=== PATIENT | female | born 1940 | race Caucasian/White ===

== ENCOUNTER → 2020-04-23 | Outpatient (CLI) | payer MEDICARE ==
--- NOTE | 2020-04-30 10:07 | REPMRS ---
Patient History The patient states she had a clinical breast exam in December 2019. Patient is postmenopausal and has history of other cancer at age 76. Family history of unknown cancer at age 56 in mother, pancreatic cancer at age 65 in father. Taking unspecified hormones for 20 years. Digital Woman Screen Mammo: April 23, 2020 - Exam #: [id number] Bilateral CC and MLO view(s) were taken. Technologist: Minerva Campbell, Technologist Prior study comparison: March 22, 2019, bilateral digital woman screen mammo, [facility]. September 09, 2018, right breast diagnostic unilateral mammo, performed [facility]. March 28, 2018, bilateral digital woman screen mammo, performed at [facility]. FINDINGS: There are scattered fibroglandular densities. The Volpara volumetric breast density category is:B. There has been no change in the appearance of the mammogram from the prior studies. There is a mild amount of scattered fibroglandular density which is fairly symmetric. There is no interval development of dominant mass, architectural distortion, or grouped microcalcification suggestive of malignancy. 3-D tomosynthesis shows no additional findings. Assessment: BI-RADS/ACR category 1 mammogram. Negative Mammogram. Recommendation Routine screening mammogram of both breasts in 1 year (for women over age 40). This patient's Lifetime Breast Cancer Risk is estimated at 0.7 %. This mammogram was interpreted with the aid of an FDA-approved computer-aided dectection system. Electronically Signed By: Rod Power MD 04/30/20 [id number]
== END ==
LOC: M WHC 11:30
PROVIDERS: ATTEND Registered Nurse
DX: Z12.31 Encounter for screening mammogram for malignant neoplasm of breast (principal)

== ENCOUNTER → 2021-04-23 | Outpatient (CLI) | payer MEDICARE ==
--- NOTE | 2021-04-23 10:00 | REP ---
INDICATION: Z12.31 SCREENING MAMMO. COMPARISON: Multiple but only the prior exam of 04/23/2020 is a DBT exam TECHNIQUE: Digital screening mammography was carried out bilaterally in the CC and MLO projections using both 2D and 3D modalities and compared to the prior exams. By history, the patient has no complaints of a palpable breast abnormality or other significant breast complaints. FINDINGS: The breasts are unchanged in size and shape. Once again, scattered dense heterogenous nodular fibroglandular elements are seen bilaterally to such a degree that the sensitivity of the mammogram in detecting cancer is decreased. Stable benign calcifications are seen bilaterally. In the retroareolar slightly upper outer quadrant of the left breast there is a tiny potential shannan density. No other suspicious features are seen in either breast. The Volpara volumetric breast density pattern is C IMPRESSION: BIRADS/ACR category 0 mammogram. Potential shannan density in the left breast as described above and for which diagnostic digital magnified spot compression views are recommended in the CC and MLO projections. The spot compression views should be obtained using DBT technique. This patient's Tyrer-Cuzick lifetime breast cancer risk assessment score is 0.6%. This mammogram was interpreted with the aid of an FDA-approved computer-aided detection system. The patient states she had a clinical breast exam in over a year. The patient letter being requested is M0. RECOMMENDATION: As above <Electronically signed by Salo Clark > 04/23/21 [id number]
--- NOTE | 2021-04-23 13:50 | DEXAMM ---
INDICATION: M85.80 [facility] DISRD OF BONE DENSITY AND STRUCTURE. COMPARISON: Prior partial data January 03, 2014.. TECHNIQUE: Bone density was measured using dual-energy x-ray absorptionmetry (DEXA). FINDINGS: AP SPINE L1-L4 BMD 1.043 g/cm2 Young Adult T-Score -1.2 Age Matched Z-Score 0.6. LT FEMUR, TOTAL BMD 0.773 g/cm2 Young Adult T-Score -1.9 Age Matched Z-Score 0.3. LT NECK BMD 0.665 g/cm2 Young Adult T-Score -2.7 Age Matched Z-Score -0.4. RT FEMUR, TOTAL BMD 0.721 g/cm2 Young Adult T-Score -2.3 Age Matched Z-Score -0.2. RT NECK BMD 0.611 g/cm2 Young Adult T-Score -3.1 Age Matched Z-Score -0.8. IMPRESSION: There is low bone density of the spine. There is osteoporosis of the left hip. There is osteoporosis of the right hip. The density of the left hip has decreased 12.0% since initial exam on January 03, 2014. FOLLOW-UP: Recommendation for the next bone density exam: 2 years. <Electronically signed by Rod Power > 04/23/21 [id number]
== END ==
LOC: M WHC 08:07
PROVIDERS: ATTEND Internal Medicine
DX: Z12.31 Encounter for screening mammogram for malignant neoplasm of breast (principal); M85.80 Other specified disorders of bone density and structure, unspecified site; R92.8 Other abnormal and inconclusive findings on diagnostic imaging of breast; Z78.0 Asymptomatic menopausal state

== ENCOUNTER → 2021-05-13 | Outpatient (CLI) | payer MEDICARE | LOC: M WHC 12:51 | PROVIDERS: ATTEND Internal Medicine | DX: R92.2 Inconclusive mammogram (principal); N63.25 Unspecified lump in the left breast, overlapping quadrants; M85.80 Other specified disorders of bone density and structure, unspecified site | CPT/HCPCS: 76642; 77065; G0279 ==

== ENCOUNTER → 2022-04-29 | Outpatient (CLI) | payer MEDICARE | LOC: M WHC 09:22 | PROVIDERS: ATTEND Internal Medicine | DX: Z12.31 Encounter for screening mammogram for malignant neoplasm of breast (principal); N63.11 Unspecified lump in the right breast, upper outer quadrant ==

== ENCOUNTER → 2022-05-25 | Outpatient (CLI) | payer MEDICARE | LOC: M WHC 08:24 | PROVIDERS: ATTEND Internal Medicine | DX: R92.8 Other abnormal and inconclusive findings on diagnostic imaging of breast (principal); N63.10 Unspecified lump in the right breast, unspecified quadrant; N60.12 Diffuse cystic mastopathy of left breast ==

== ENCOUNTER → 2022-06-09 | Outpatient (CLI) | payer MEDICARE ==
[~2022-06-09] MED LIST: **SFHN** LIDOCAINE 1% MDV 20ML VIAL ONE; **SFHN** SODIUM BICARBONATE 8.4% 50MEQ 50ML VIAL ONE; AMLO25TA PO; CITRTAB18 PO; CO Q200C10 PO; CVS1CAP2 PO; D 101000 PO; ESTR1TAB PO; PRIL20TA2 PO; VALS1TAB66 PO; VITA-298 PO
[2022-06-09 10:02] VITALS: BP 118/78
== END ==
LOC: M WHCPRO 08:23
PROVIDERS: ATTEND Internal Medicine
DX: C50.911 Malignant neoplasm of unspecified site of right female breast (principal)

== ENCOUNTER → 2022-06-16 | Outpatient (REF) | payer MEDICARE ==
[~2022-06-16] MED LIST changes: -**SFHN** LIDOCAINE 1% MDV 20ML VIAL ONE; -**SFHN** SODIUM BICARBONATE 8.4% 50MEQ 50ML VIAL ONE
[2022-06-16 12:36] LABS: INR 0.87; PROTHROMBIN TIME 12.2 SECONDS (12.7-14.5)
[2022-06-16 12:37] LABS: PARTIAL THROMBOPLASTIN TIME 27.5 SECONDS (25.9-37.0)
== END ==
LOC: M LAB REF 12:02
PROVIDERS: ATTEND Internal Medicine
DX: Z01.810 Encounter for preprocedural cardiovascular examination (principal); N63.31 Unspecified lump in axillary tail of the right breast

== ENCOUNTER → 2022-07-02 | Outpatient (CLI) | payer MEDICARE | LOC: M LABSMTC 11:04 | PROVIDERS: ATTEND Anesthesiology | DX: Z01.818 Encounter for other preprocedural examination (principal); Z11.52 Encounter for screening for COVID-19 ==

== ENCOUNTER 2022-07-07 06:31 | Day surgery (SDC) | payer MEDICARE ==
[~2022-07-07] VITALS: Ht 170.2 cm; Wt 70.9 kg
[~2022-07-07 06:31] MED LIST changes: +HEPARIN SOD (PORCINE) 5000UNITS/ML 1ML VIAL/SYRINGE SQ ONE; +ceFAZolin SOD 2 GM in IV 1 EA IV ONE
[2022-07-07] MEDS ORDERED: SCOPOLAMINE 1MG TRANSDERMAL PATCH TOP ONE (07:35)
[2022-07-07] MEDS ORDERED: LR 1,000 ML IV SCH ×2 (07:35→13:30)
[2022-07-07] MEDS ORDERED: propofoL 200 MG/20 ML VIAL As Ordered ONE (08:04)
[2022-07-07] MEDS ORDERED: LIDOCAINE 2% 100MG/5ML SDV (FOR ANES.) As Ordered ONE (08:04)
[2022-07-07] MEDS ORDERED: ONDANSETRON 4MG 2ML VIAL As Ordered ONE (08:05)
[2022-07-07] MEDS ORDERED: dexameTHASONE 4 MG/ML 1ML VIAL (J1100 PER 1MG) As Ordered ONE (08:05)
[2022-07-07] MEDS ORDERED: fentaNYL 250 MCG/5 ML INJECTION As Ordered ONE (08:12)
[2022-07-07] MEDS ORDERED: MIDAZOLAM INJ 2MG/2ML VIAL (J2250 PER 1MG) As Ordered ONE (08:13)
[2022-07-07] MEDS ORDERED: BUPIVACAINE HCL 0.25% 30ML VIAL As Ordered ONE (10:37)
[2022-07-07] MEDS ORDERED: LIDOCAINE 1% SDV 30ML VIAL As Ordered ONE (10:37)
[2022-07-07] MEDS ORDERED: ROCURONIUM BROMIDE 50 MG/5 ML VIAL As Ordered ONE ×3 (10:41→12:59)
[2022-07-07] MEDS ORDERED: METHYLENE BLUE 0.5% (5MG/ML) 10 ML AMP (PROVAYBLUE) As Ordered ONE (11:16)
[2022-07-07] MEDS ORDERED: PHENYLephrine 500MCG 5ML (100MCG/ML) SYRINGE As Ordered ONE ×2 (11:40→11:49)
[2022-07-07] MEDS ORDERED: PHENYLEPHRINE 10MG/ML 1ML VIAL (J2370 PER 1) As Ordered ONE ×3 (12:08→12:12)
[2022-07-07] MEDS ORDERED: ePHEDrine SULFATE 25 MG/5 ML(5MG/ML) SYRINGE As Ordered ONE (12:09)
[2022-07-07] MEDS ORDERED: ACETAMINOPHEN 1000MG 100ML IV BTL (OFIRMEV) (J0131 PER 10MG) As Ordered ONE ×2 (12:26→15:31)
[2022-07-07] MEDS ORDERED: VASOPRESSIN INJ 20 UNITS/ML VIAL As Ordered ONE (12:42)
[2022-07-07] MEDS ORDERED: SUGAMMADEX SODIUM 500 MG/5 ML VIAL (BRIDION) As Ordered ONE (13:19)
[2022-07-07] MEDS ORDERED: PERCOCET 5MG/325MG TAB PO PRN (13:30)
[2022-07-07] MEDS ORDERED: fentaNYL 100 MCG/2 ML INJECTION IV PRN (13:30)
[2022-07-07] MEDS ORDERED: ONDANSETRON 4MG 2ML VIAL IV PRN (13:30)
[2022-07-07] MEDS ORDERED: MORPHINE 2 MG/ML 1ML VIAL IV PRN (13:30)
[2022-07-07] MEDS ORDERED: ROXI1TAB2 PO (14:05)
[2022-07-07 15:15] VITALS: BP 118/70
== END 2022-07-07 15:30 | disposition home or self-care (01) ==
LOC: M SDC 06:31
PROVIDERS: ATTEND Surgery
DX: C50.911 Malignant neoplasm of unspecified site of right female breast (principal); Z17.0 Estrogen receptor positive status [ER+]; I12.9 Hypertensive chronic kidney disease with stage 1 through stage 4 chronic kidney disease, or unspecified chronic kidney disease; Z91.040 Latex allergy status; Z88.2 Allergy status to sulfonamides; N18.9 Chronic kidney disease, unspecified; E55.9 Vitamin D deficiency, unspecified; D64.9 Anemia, unspecified; Z80.51 Family history of malignant neoplasm of kidney; Z85.528 Personal history of other malignant neoplasm of kidney; Z79.890 Hormone replacement therapy; Z79.899 Other long term (current) drug therapy
CPT/HCPCS: 19125; 36415; 38525; 78195; 86850; 86900; 86901; 88307; A4648; A9520; J0131; J0690; J1100; J1644; J2250; J2370; J2405; J3010

== ENCOUNTER → 2022-07-20 | Outpatient (REF) | payer MEDICARE ==
[~2022-07-20] MED LIST changes: +CEPH500C PO; -HEPARIN SOD (PORCINE) 5000UNITS/ML 1ML VIAL/SYRINGE SQ ONE; +ROXI1TAB2 PO; -ceFAZolin SOD 2 GM in IV 1 EA IV ONE
[2022-07-20 18:07] LABS: BACTERIA, URINE LARGE AMOUNT; RENAL EPITHELIAL CELLS, URINE SMALL AMOUNT /hpf; SQUAMOUS EPITHELIAL CELL URINE LARGE AMOUNT /hpf (SMALL AMT); TRANSITIONAL EPI CELLS, URINE SMALL AMOUNT /hpf; WBC, URINE TNTC /hpf (0-3)
[2022-07-20 18:08] LABS: HYALINE CAST, URINE NONE SEEN /lpf (0-1)
== END ==
LOC: M LAB REF 16:23
PROVIDERS: ATTEND Internal Medicine
DX: R30.0 Dysuria (principal)

== ENCOUNTER → 2022-07-22 | Outpatient (CLI) | payer MEDICARE | LOC: M ONCR 13:13 | PROVIDERS: ATTEND Radiology Radiation Oncology | DX: C50.411 Malignant neoplasm of upper-outer quadrant of right female breast (principal); I10 Essential (primary) hypertension; N18.9 Chronic kidney disease, unspecified; Z79.899 Other long term (current) drug therapy; Z85.528 Personal history of other malignant neoplasm of kidney; Z90.49 Acquired absence of other specified parts of digestive tract; Z90.5 Acquired absence of kidney; Z90.710 Acquired absence of both cervix and uterus; Z90.722 Acquired absence of ovaries, bilateral; Z90.79 Acquired absence of other genital organ(s); Z90.89 Acquired absence of other organs; Z91.040 Latex allergy status; Z91.048 Other nonmedicinal substance allergy status ==

== ENCOUNTER → 2023-07-14 | Outpatient (CLI) | payer MEDICARE ==
[~2023-07-14] MED LIST changes: +LETR2.5T2 PO; +METO1TAB32 PO; +METO1TAB7 PO; +VITA-148 PO; -VITA-298 PO
== END ==
LOC: M RAD 11:07
PROVIDERS: ATTEND Orthopaedic Surgery
DX: Z01.818 Encounter for other preprocedural examination (principal); M17.11 Unilateral primary osteoarthritis, right knee

== ENCOUNTER → 2023-11-02 | Outpatient (CLI) | payer MEDICARE | LOC: M WHC 13:52 | PROVIDERS: ATTEND Internal Medicine | DX: R92.8 Other abnormal and inconclusive findings on diagnostic imaging of breast (principal); R92.321 Mammographic fibroglandular density, right breast; Z98.890 Other specified postprocedural states ==

== ENCOUNTER → 2024-03-20 | Outpatient (REF) | payer MEDICARE ==
[2024-03-20 17:34] LABS: APPEARANCE, URINE HAZY (CLEAR); BACTERIA, URINE AUTO 1+ (NEGATIVE); BILIRUBIN, URINE AUTO NEGATIVE (NEGATIVE); BLOOD, URINE BLOOD 1+ (NEGATIVE); COLOR, URINE STRAW (YELLOW); GLUCOSE, URINE (UA) AUTO NEGATIVE (NEGATIVE); KETONE, URINE AUTO NEGATIVE (NEGATIVE); LEUKOCYTE ESTERASE, URINE AUTO 3+ (NEGATIVE); MUCUS, URINE SMALL (NEGATIVE); NITRITE, URINE AUTO NEGATIVE (NEGATIVE); PROTEIN, URINE AUTO 1+ mg/dL (NEGATIVE); RBC, URINE AUTO 2 /HPF (0-3); SPECIFIC GRAVITY URINE AUTO 1.005 (1.002-1.035); SQUAMOUS EPITHELIAL CELL UR AU 0 /HPF (0-6); UROBILINOGEN, URINE AUTO 0.2 mg/dL (0.0-2.0); WBC, URINE AUTO 78 /HPF (0-3)
== END ==
LOC: M LAB REF 16:19
PROVIDERS: ATTEND Internal Medicine
DX: N39.0 Urinary tract infection, site not specified (principal)

== ENCOUNTER → 2024-05-02 | Outpatient (CLI) | payer MEDICARE | LOC: M WHC 07:46 | PROVIDERS: ATTEND Nurse Practitioner Women's Health | DX: Z85.3 Personal history of malignant neoplasm of breast (principal); R92.323 Mammographic fibroglandular density, bilateral breasts | CPT/HCPCS: 77066; G0279 ==

== ENCOUNTER → 2024-05-22 | Outpatient (CLI) | payer MEDICARE | LOC: M PLAIMG 09:20 | PROVIDERS: ATTEND Internal Medicine | DX: M81.0 Age-related osteoporosis without current pathological fracture (principal); M47.814 Spondylosis without myelopathy or radiculopathy, thoracic region; M47.815 Spondylosis without myelopathy or radiculopathy, thoracolumbar region ==

== ENCOUNTER → 2024-07-27 | Outpatient (REF) | payer MEDICARE | LOC: M LAB REF 17:15 | PROVIDERS: ATTEND Internal Medicine | DX: R32 Unspecified urinary incontinence (principal) ==

== ENCOUNTER → 2025-02-05 | Outpatient (CLI) | payer MEDICARE | LOC: M RAD 13:14 | PROVIDERS: ATTEND Internal Medicine | DX: N18.9 Chronic kidney disease, unspecified (principal) ==

== ENCOUNTER → 2025-02-16 | Outpatient (REF) | payer MEDICARE | LOC: M LAB REF 17:18 | PROVIDERS: ATTEND Internal Medicine Nephrology | DX: N39.0 Urinary tract infection, site not specified (principal) ==

== ENCOUNTER → 2025-05-08 | Outpatient (CLI) | payer MEDICARE ==
[~2025-05-08] MED LIST changes: +ESTR0.1C5; +MYRB25TA
== END ==
LOC: M WHC 07:46
PROVIDERS: ATTEND Internal Medicine Medical Oncology
DX: Z85.3 Personal history of malignant neoplasm of breast (principal); R92.323 Mammographic fibroglandular density, bilateral breasts; M81.0 Age-related osteoporosis without current pathological fracture; M85.89 Other specified disorders of bone density and structure, multiple sites
CPT/HCPCS: 77066; 77080; G0279

== ENCOUNTER → 2025-05-16 | Outpatient (CLI) | payer MEDICARE | LOC: M RAD 09:05 | PROVIDERS: ATTEND Internal Medicine Medical Oncology | DX: C50.919 Malignant neoplasm of unspecified site of unspecified female breast (principal) ==